=== PATIENT | female | born 1970 | race Caucasian/White ===

== ENCOUNTER 2024-03-05 13:17 | Emergency (ER) | payer MEDICAID ==
[~2024-03-05] VITALS: Ht 175.3 cm; Wt 101.0 kg
[2024-03-05 14:26] LABS: Basophils # (auto) 0.1 10 ^3/uL (0-0.2); Basophils % (auto) 0.8 % (0.0-2.0); Eosinophils # (auto) 0.2 10 ^3/uL (0-0.8); Eosinophils % (auto) 2.1 % (0.0-7.0); Hematocrit 41.8 % (36.0-46.0); Hemoglobin 14.2 g/dL (12.2-16.2); Lymphocytes # (auto) 2.8 10 ^3/uL (0.4-5.4); Mean Corpuscular Hemoglobin 31.6 pg (28.0-32.0); Mean Corpuscular Volume 92.8 fL (80.0-100.0); Monocytes # (auto) 0.5 10 ^3/uL (0-1.3); Monocytes % (auto) 5.9 % (0.0-12.0); Neutrophils # (auto) 5.5 10 ^3/uL (1.6-8.6); Neutrophils % (auto) 60.2 % (37.0-80.0); Platelet Count (auto) 316 10^3/uL (140-450); Red Cell Distribution Width 13.5 % (11.8-14.3); White Blood Cell 9.2 10^3/uL (4.4-10.8)
--- NOTE | 2024-03-05 14:34 | DVH ---
CT ABDOMEN AND PELVIS WITHOUT CONTRAST CLINICAL HISTORY: LEFT FLANK PAIN TECHNIQUE: Multiple contiguous axial images of the abdomen and pelvis without intravenous contrast. The images were reformatted degenerate coronal and sagittal reconstructions. All CT scans at this medical facility are performed using dose modulation techniques as appropriate t o a performed exam including the following:Automated exposure control was utilized; adjustment of the MA and/or KV according to patient size; and use of iterative reconstruction technique. Radiation Dose Information: CT Dose: CTDI volume is 19.95 mGy. Dose-length product is 1108.92 mGy*cm Comparison: None FINDINGS: Evaluation of the abdomen and pelvis is limited without intravenous contrast. There is no evidence of a radiopaque renal calculus. There is no hydronephrosis. There is no evidenc e of a ureteral calculus or hydroureter. Gallbladder appears contracted without evidence of gallstones. The liver, pancreas, adrenal gland s, and spleen appear within normal limits. There is no gross evidence of abdominal lymphadenopathy. There is no free fluid or free air. The stomach grossly appears unremarkable. The small and large bowel loops demonstrate normal caliber . The abdominal aorta and IVC appear within normal limits. The bladder appears unremarkable for the degree of distention. Pelvic organ appears within normal nicholas its. There is no gross evidence of a pelvic mass. There is no free fluid collection. Lung bases are clear. There is no acute osseous abnormality. IMPRESSION: 1. There is no acute process in the abdomen and pelvis. HS:Y
[2024-03-05 14:50] LABS: Alanine Aminotransferase 16 U/L (7-40); Albumin 4.4 g/dL (3.2-4.8); Alkaline Phosphatase 64 U/L (46-116); Anion Gap 7 (5-15); BUN/Creatinine Ratio 12.6 (10.0-20.0); Bilirubin, Total 0.3 mg/dL (0.2-1.0); Blood Urea Nitrogen 15 mg/dL (9-23); Calcium 9.9 mg/dL (8.7-10.4); Carbon Dioxide 27 mmol/L (20-31); Potassium 4.3 mmol/L (3.5-5.1); Sodium 143 mmol/L (136-145); Total Protein 6.8 g/dL (5.7-8.2)
[2024-03-05 14:54] LABS: Aspartate Aminotransferase < 8 U/L (13-40); Chloride 109 mmol/L (98-107); Glucose 110 mg/dL (74-106)
[2024-03-05] MEDS ORDERED: IBUP-1456 PO (15:32)
[2024-03-05] MEDS ORDERED: TOB03OS OP (15:32)
--- NOTE | 2024-03-05 15:33 | ED.PDOC ---
Back pain HPI HPI Comments A 53 YEAR OLD FEMALE PRESENTS TO THE ED WITH COMPLAINT OF LEFT MIDDLE BACK PAIN. PATIENT STATES SHE HAS BEEN EXPERIENCING LEFT-SIDED MIDDLE BACK PAIN FOR THE PAST 2 DAYS AFTER LIFTING HER GRANDSON AND NOTES SHE HAS A HISTORY OF DEGENERATIVE DISC DISEASE. PATIENT ALSO NOTES SHE HAD THORACIC EPIDURAL INJECTION DONE 3 DAYS AGO. PATIENT REPORTS SHE WAS ALSO BEEN EXPERIENCE BILATERAL EYE REDNESS FOR THE PAST 3 DAYS. PATIENT DENIES SADDLE ANESTHESIA, URINARY INCONTINENCE, BOWEL INCONTINENCE, FEVER, CHILLS, SHORTNESS OF BREATH, CHEST PAIN, ABDOMINAL PAIN, NAUSEA, VOMITING, HEADACHE, OR OTHER COMPLAINTS. NO OTHER SYMPTOMS OR MODIFYING FACTORS AT THIS TIME. PATIENT IS ALERT, ORIENTED X 4, AND HAS STEADY GAIT. Chief Complaint: Flank Pain Time Seen by MD: 13:51 Reviewed Notes: Nurses Notes, Medications, Allergies Allergies: Coded Allergies: [place] (Verified Allergy, Unknown, 03/05/24) Penicillins (Verified Allergy, Unknown, 03/05/24) Sulfa Antibiotics (Verified Allergy, Unknown, 03/05/24) Home Meds Active Scripts Tobramycin Sulfate (Tobrex) [address], 2 DROP OP QID, #5 ML Prov:MEDARDO VANCE 03/05/24 Ibuprofen (Ibuprofen) 800 Mg Tab, 1 TAB PO TID, #30 TAB Prov:MEDARDO VANCE 03/05/24 Information Source: Patient Mode of Arrival: Ambulatory Timing: Days Duration: Since onset, Days Location of Back pain: (B) Thoracic Severity: Moderate Prehospital treatment: None Quality: Aching, Cramping Onset: Spontaneous History of: Chronic Back Pain Modifying Factors: Movement Associated signs and symptoms: None Past Medical History Past Medical History (Other): DDD OF BACK Surgical History: Denies all surgeries CONTINUOUS PICKLING LINE PICKLER History: No Pertinent CONTINUOUS PICKLING LINE PICKLER History Family History Family History: Reviewed,noncontributory to illness Social History Smoker: Non-Smoker Alcohol: Denies ETOH Use Drugs: Denies Drug Use Lives In: Home Constitutional: denies: chills, diaphoresis, fatigue, fever, malaise, sweats, weakness, others EENTM: reports: eye redness; denies: blurred vision, double vision, ear bleeding, ear discharge, ear drainage, ear pain, ear ringing, eye pain, hearing loss, mouth pain, mouth swelling, nasal discharge, nose bleeding, nose congestion, nose pain, photophobia, tearing, throat pain, throat swelling, voice changes, others Respiratory: denies: cough, hemoptysis, orthopnea, SOB at rest, shortness of breath, SOB with excertion, stridor, wheezing, others Cardiovascular: denies: chest pain, dizzy spells, diaphoresis, Dyspnea on exertion, edema, irregular heart beat, left arm pain, lightheadedness, palpitations, PND, syncope, others Gastrointestinal: denies: abdomen distended, abdominal pain, blood streaked bowels, constipated, diarrhea, dysphagia, difficulty swallowing, hematemesis, melena, nausea, poor appetite, poor fluid intake, rectal bleeding, rectal pain, vomiting, others Genitourinary: denies: abnormal vagina bleeding, burning, dyspareunia, dysuria, flank pain, frequency, hematuria, incontinence, pain, , vagina discharge, urgency, others Neurological: denies: dizziness, fainting, headache, left sided numbness, left sided weakness, numbness, paresthesia, pre-existing deficit, right sided numbness, right sided weakness, seizure, speech problems, tingling, tremors, weakness, others Musculoskeletal: reports: back pain (LEFT MIDDLE BACK PAIN), muscle pain; denies: gout, joint pain, joint swelling, muscle stiffness, neck pain, others Integumetry: denies: bruises, change in color, change in hair/nails, dryness, laceration, lesions, lumps, rash, wounds, others Allergic/Immunocompromised: denies: Difficulty Healing, Frequent Infections, Hives, Itching, others Hematologic/Lymphatic: denies: anemia, blood clots, easy bleeding, easy bruising, swollen glands, others Endocrine: denies: excessive hunger, excessive sweating, excessive thirst, excessive urination, flushing, intolerance to cold, intolerance to heat, unexplained weight gain, unexplained weight loss, others Psychiatric: denies: anxiety, bipolar disorder, depression, hopeless, panic disorder, schizophrenia, sleepless, suicidal, others All Other Systems: Reviewed and Negative Physical Exam General Appearance: No Apparent Distress, Normal HEENT: Normal ENT Inspection, PERRL/EOMI, Pharynx Normal, TMs Normal, Other (BILATERAL SUBCONJUNCTIVA HEMORRHAGE WITH GREEN DISCHARGE. ) Neck: Full Range of Motion, Non-Tender, Normal, Normal Inspection Respiratory: Chest Non-Tender, Lungs Clear, No Accessory Muscle Use, No Respiratory Distress, Normal Breath Sounds Cardiovascular: No Edema, No JVD, No Murmur, No Gallop, Normal Peripheral Pulses, Regular Rate/Rhythm Breast Exam: Deferred Gastrointestinal: No Organomegaly, Non Tender, No Pulsatile Mass, Normal Bowel Sounds, Soft Genitalia: Deferred Pelvic: Deferred Rectal: Deferred Extremities: No calf tenderness, Normal capillary refill, Normal inspection, Normal range of motion, Non-tender, No pedal edema Musculoskeletal : Location: Bilateral Extremity Location: Back Apperance: Tenderness: Moderate (TENDERNESS AND MUSCLE SPASM ON LEFT MIDDLE BACK, NO BONY TENDERNESS AND SWELLING. ) Neurologic: Alert, supervisor fur dressing II-XII nml as Tested, No Motor Deficits, Normal Affect, Normal Mood, No Sensory Deficits Cerebellar Function: Normal Reflexes: Normal Skin: Dry, Normal Color, Warm Peripheral Pulses: 2+ carotid (R), 2+ carotid (L) Lymphatic: No Adenopathy Was a procedure done? Was a procedure done?: No Back Pain Differential Dx Differential Diagnosis: DJD, Musculoskeletal Pain, Strain Other Differential Diagnosis DDD X-Ray, Labs, Meds, VS Vital Signs Date Time Temp Pulse Resp B/P (MAP) Pulse Ox O2 Delivery O2 Flow Rate FiO2 03/05/24 15:36 98.0 74 18 119/71 (87) 96 98.0 03/05/24 15:36 74 18 96 Room Air 03/05/24 13:44 97.0 74 18 119/71 (87) 96 Lab Test 03/05/24 14:03 Range/Units White Blood Count 9.2 4.4-10.8 10^3/uL Red Blood Count 4.50 4.0-5.20 10^6/uL Hemoglobin 14.2 12.2-16.2 g/dL Hematocrit 41.8 36.0-46.0 % Mean Corpuscular Volume 92.8 80.0-100.0 fL Mean Corpuscular Hemoglobin 31.6 28.0-32.0 pg Mean Corpuscular Hemoglobin Concent 34.0 32.0-36.0 g/dL Red Cell Distribution Width 13.5 11.8-14.3 % Platelet Count 316 140-450 10^3/uL Mean Platelet Volume 8.2 6.9-10.8 fL Neutrophils (%) (Auto) 60.2 37.0-80.0 % Lymphocytes (%) (Auto) 31.0 10.0-50.0 % Monocytes (%) (Auto) 5.9 0.0-12.0 % Eosinophils (%) (Auto) 2.1 0.0-7.0 % Basophils (%) (Auto) 0.8 0.0-2.0 % Neutrophils # (Auto) 5.5 1.6-8.6 10 ^3/uL Lymphocytes # (Auto) 2.8 0.4-5.4 10 ^3/uL Monocytes # (Auto) 0.5 0-1.3 10 ^3/uL Eosinophils # (Auto) 0.2 0-0.8 10 ^3/uL Basophils # (Auto) 0.1 0-0.2 10 ^3/uL Nucleated Red Blood Cells 0.0 % Sodium Level 143 136-145 mmol/L Potassium Level 4.3 3.5-5.1 mmol/L Chloride Level 109 H 98-107 mmol/L Carbon Dioxide Level 27 20-31 mmol/L Anion Gap 7 5-15 Blood Urea Nitrogen 15 9-23 mg/dL Creatinine 1.19 H 0.550-1.02 mg/dL Glomerular Filtration Rate Calc 55 >90 mL/min BUN/Creatinine Ratio 12.6 10.0-20.0 Serum Glucose 110 H 74-106 mg/dL Calcium Level 9.9 8.7-10.4 mg/dL Total Bilirubin 0.3 0.2-1.0 mg/dL Aspartate Amino Transferase (AST) < 8 L 13-40 U/L Alanine Aminotransferase (ALT) 16 7-40 U/L Alkaline Phosphatase 64 46-116 U/L Total Protein 6.8 5.7-8.2 g/dL Albumin 4.4 3.2-4.8 g/dL Lipase Pending Current Medications Medications (Trade) Dose Ordered Sig/Dg Route Start Time Stop Time Status Last Admin Ketorolac Tromethamine (Toradol Injection) 60 mg ONCE ONCE IM 03/05/24 15:30 03/05/24 15:31 DC 03/05/24 15:34 CT ABDOMEN AND PELVIS WITHOUT CONTRAST CLINICAL HISTORY: LEFT FLANK PAIN TECHNIQUE: Multiple contiguous axial images of the abdomen and pelvis without i ntravenous contrast. The images were reformatted degenerate coronal and sagittal reconstructions. All CT scans at this medical facility are performed using dose modulation techniques as appropriate to a performed exam including the following:Automated exposure control was utilized; adjustment of the MA and/or KV according to patient size; and use of iterative reconstruction technique. Radiation Dose Information: CT Dose: CTDI volume is 19.95 mGy. Dose-length product is 1108.92 mGy*cm Comparison: None FINDINGS: Evaluation of the abdomen and pelvis is limited without intravenous contrast. There is no evidence of a radiopaque renal calculus. There is no hydronephrosis. There is no evidence of a ureteral calculus or hydroureter. Gallbladder appears contracted without evidence of gallstones. The liver, pancreas, adrenal glands, and spleen appear within normal limits. There is no gross evidence of abdominal lymphadenopathy. There is no free fluid or free air. The stomach grossly appears unremarkable. The small and large bowel loops demonstrate normal caliber. The abdominal aorta and IVC appear within normal limits. The bladder appears unremarkable for the degree of distention. Pelvic organ appears within normal limits. There is no gross evidence of a pelvic mass. There is no free fluid collection. Lung bases are clear. There is no acute osseous abnormality. IMPRESSION: 1. There is no acute process in the abdomen and pelvis. HS:Y ATED BY: PAVEL CAMPOS MD DICTATED DATE/TIME: 03/05/241432 SIGNED BY: PAVEL CAMPOS MD SIGNED DATE/TIME: 03/05/241432 CC: X-Ray, Labs, Meds, VS Comment EXTERNAL NOTES: NONE LABS ORDERED: CBC, BMP, LIPASE, UA REVIEWED AND INTERPRETED RESULTS: NORMAL IMAGING ORDERED: CT ABS/PEL INDEPENDENT HISTORIANS: NONE TREATMENTS ORDERED: TORADOL 60 MG IM PATIENT'S CASE AND RESULTS HAVE BEEN DISCUSSED WITH THE ED ATTENDING PHYSICIAN AND THEY AGREE WITH MY PLAN OF CARE. I HAVE DISCUSSED IMAGING AND LAB RESULTS WITH PATIENT AND HAVE INSTRUCTED THEM TO FOLLOW UP WITH THEIR PCP IN 1-2 DAYS. THE PATIENT FULLY UNDERSTANDS THEIR RESULTS AND ARE AWARE THEY NEED TO FOLLOW UP WITH THEIR PCP FOR FURTHER EVALUATION IF THEIR SYMPTOMS PERSIST. Images Reviewed?: Images reviewed and evaluated by me Time of 1ST Reevaluation: 15:41 Reevaluation 1ST: Improved Patient Education/Counseling: Diagnosis, Treatment, Need For Follow Up Family Education/Counseling: Diagnosis, Treatment, Need For Follow Up Medical Screening: No EMC Exist At This Time Departure 1 Departure Time of Disposition: 15:41 Impression: Primary Impression: Strain of mid-back Qualified Codes: S29.012A - Strain of muscle and tendon of back wall of thorax, initial encounter Additional Impression: Acute conjunctivitis of both eyes Qualified Codes: H10.33 - Unspecified acute conjunctivitis, bilateral Disposition: HOME / SELF CARE / HOMELESS Condition: Stable Additional Instructions: FOLLOW-UP WITH PCP IN 1 TO 2 DAYS. TAKE MEDICATIONS PRESCRIBED. RETURN TO ED FOR ANY NEW OR WORSENING SYMPTOMS. e-Prescriptions Tobramycin Sulfate (Tobrex) [address] 2 DROP OP QID, #5 ML Prov: MEDARDO VANCE 03/05/24 Ibuprofen (Ibuprofen) 800 Mg Tab 1 TAB PO TID, #30 TAB Prov: MEDARDO VANCE 03/05/24 Discharged With: Self Critical Care Note Critical Care Time?: No Stability Stability form required: No I personally scribed for MEDARDO VANCE ([email or web address]) on 03/05/24 at 15:33. Electronically submitted by Leonid Alarcon ([email or web address]). MEDARDO VANCE Mar 05, 2024 15:33
[2024-03-05] MEDS: KETOROLAC TROMETH 60MG/2ML VIAL IM ONE (15:34)
[2024-03-05 15:36] VITALS: BP 119/71; PULSE 74; RESP 18; TEMP 98; O2SAT 96
[2024-03-05 15:47] LABS: Lipase 60 U/L (12-53)
== END 2024-03-05 15:42 | disposition home or self-care (01) ==
LOC: ER 13:17
DX: S29.012A Strain of muscle and tendon of back wall of thorax, initial encounter (principal); H10.9 Unspecified conjunctivitis; Z88.0 Allergy status to penicillin; Z88.2 Allergy status to sulfonamides; Z88.8 Allergy status to other drugs, medicaments and biological substances; X50.0XXA Overexertion from strenuous movement or load, initial encounter; X50.9XXA Other and unspecified overexertion or strenuous movements or postures, initial encounter; Y93.89 Activity, other specified; Y99.8 Other external cause status
CPT/HCPCS: 36415; 74176; 80053; 83690; 85025; 96372; 99285; J1885

== ENCOUNTER 2024-12-01 06:22 | Emergency (ER) | payer MEDICAID ==
[~2024-12-01] VITALS: Ht 175.3 cm; Wt 108.2 kg
[~2024-12-01 06:22] MED LIST: IBUP-1456 PO; TOB03OS OP
[2024-12-01 06:24] VITALS: BP 150/76; PULSE 66; RESP 18; TEMP 98; O2SAT 96
[2024-12-01] MEDS ORDERED: HYDR50TA69 PO (07:00)
[2024-12-01] MEDS ORDERED: OLOP0.1S7 OP (07:00)
--- NOTE | 2024-12-01 07:09 | ED.PDOC ---
History of Present Illness HPI Comments A 54-YEAR-OLD FEMALE PRESENTS TO ER FOR BODY ITCHING AND EYES REDNESS. PT STATES SHE ATE SOME FOOD 3 DAYS AGO. AFTER THAT, SHE STARTED HAVING BODY ITCHING, EYES REDNESS AND MILD BODY SKIN RASH, POSSIBLE ALLERGIC REACTION. PT DENIES FEVER, SOB, CHEST PAIN, NAUSEA, VOMITING AND OTHER COMPLAINTS. NO OTHER SYMPTOMS REPORTED AT THIS TIME OF CARE. PT IS ALERT, ORIENTATION X4 WITH NORMAL GAIT. Chief Complaint: Rash Time Seen by MD: 06:32 Reviewed Notes: Nurses Notes, Medications, Allergies Allergies: Coded Allergies: Amitriptyline (Verified Allergy, Unknown, 12/01/24) [place] (Verified Allergy, Unknown, 03/05/24) Penicillins (Verified Allergy, Unknown, 03/05/24) Sulfa Antibiotics (Verified Allergy, Unknown, 03/05/24) Home Meds Active Scripts Prednisone (Prednisone) 20 Mg Tab, 60 MG PO DAILY, #18 TAB Prov:MEDARDO VANCE 12/01/24 Olopatadine HCl (Pataday) 0.1 % Ashley, 0.1 % OP BID, #5 ML Prov:MEDARDO VANCE 12/01/24 Hydroxyzine Hcl (Hydroxyzine Hcl) 50 Mg Tab, 1 TAB PO BID, #30 TAB Prov:MEDARDO VANCE 12/01/24 Tobramycin Sulfate (Tobrex) [address], 2 DROP OP QID, #5 ML Prov:MEDARDO VANCE 03/05/24 Ibuprofen (Ibuprofen) 800 Mg Tab, 1 TAB PO TID, #30 TAB Prov:MEDARDO VANCE 03/05/24 Information Source: Patient Mode of Arrival: Ambulatory Severity: Mild, Moderate Timing: Days Duration: Since onset, Days Prehospital treatment: None Medication Refill: For: Other (BODY ITCHING AND EYES REDNESS. ) Past Medical History PAST MEDICAL HISTORY: Anxiety, HTN Surgical History: Denies all surgeries INCINERATOR ATTENDANT History: No Pertinent INCINERATOR ATTENDANT History Family History Family History: Reviewed,noncontributory to illness Social History Smoker: Non-Smoker Alcohol: Denies ETOH Use Drugs: Denies Drug Use Lives In: Home Constitutional: denies: chills, diaphoresis, fatigue, fever, malaise, sweats, weakness, others EENTM: reports: eye redness, nose congestion; denies: blurred vision, double vision, ear bleeding, ear discharge, ear drainage, ear pain, ear ringing, eye pain, hearing loss, mouth pain, mouth swelling, nasal discharge, nose bleeding, nose pain, photophobia, tearing, throat pain, throat swelling, voice changes, others Respiratory: denies: cough, hemoptysis, orthopnea, SOB at rest, shortness of breath, SOB with excertion, stridor, wheezing, others Cardiovascular: denies: chest pain, dizzy spells, diaphoresis, Dyspnea on exertion, edema, irregular heart beat, left arm pain, lightheadedness, palpitations, PND, syncope, others Gastrointestinal: denies: abdomen distended, abdominal pain, blood streaked bowels, constipated, diarrhea, dysphagia, difficulty swallowing, hematemesis, melena, nausea, poor appetite, poor fluid intake, rectal bleeding, rectal pain, vomiting, others Genitourinary: denies: abnormal vagina bleeding, burning, dyspareunia, dysuria, flank pain, frequency, hematuria, incontinence, pain, , vagina discharge, urgency, others Neurological: denies: dizziness, fainting, headache, left sided numbness, left sided weakness, numbness, paresthesia, pre-existing deficit, right sided numbness, right sided weakness, seizure, speech problems, tingling, tremors, weakness, others Musculoskeletal: denies: back pain, gout, joint pain, joint swelling, muscle pain, muscle stiffness, neck pain, others Integumetry: denies: bruises, change in color, change in hair/nails, dryness, laceration, lesions, lumps, rash, wounds, others Allergic/Immunocompromised: denies: Difficulty Healing, Frequent Infections, Hives, Itching, others Hematologic/Lymphatic: denies: anemia, blood clots, easy bleeding, easy bruising, swollen glands, others Endocrine: denies: excessive hunger, excessive sweating, excessive thirst, excessive urination, flushing, intolerance to cold, intolerance to heat, unexplained weight gain, unexplained weight loss, others Psychiatric: reports: anxiety; denies: bipolar disorder, depression, hopeless, panic disorder, schizophrenia, sleepless, suicidal, others All Other Systems: Reviewed and Negative Physical Exam General Appearance: No Apparent Distress, Obese HEENT: Normal ENT Inspection, PERRL/EOMI, Pharynx Normal, TMs Normal, Other (MILD BILATERAL SUBCONJUNCTIVA HEMORRHAGE WITH WATERY DISCHARGE. ) Neck: Full Range of Motion, Non-Tender, Normal, Normal Inspection Respiratory: Chest Non-Tender, Lungs Clear, No Accessory Muscle Use, No Respiratory Distress, Normal Breath Sounds Cardiovascular: No Edema, No JVD, No Murmur, No Gallop, Normal Peripheral Pulses, Regular Rate/Rhythm Breast Exam: Deferred Gastrointestinal: No Organomegaly, Non Tender, No Pulsatile Mass, Normal Bowel Sounds, Soft Genitalia: Deferred Pelvic: Deferred Rectal: Deferred Extremities: No calf tenderness, Normal capillary refill, Normal inspection, Normal range of motion, Non-tender, No pedal edema Musculoskeletal : Apperance: Normal Neurologic: Alert, loss prevention manager II-XII nml as Tested, No Motor Deficits, Normal Affect, Normal Mood, No Sensory Deficits Cerebellar Function: Normal Reflexes: Normal Skin: Dry, Normal Color, Rash (MILD BODY SKIN RASH WITH ITCHING, NO TENDERNESS AND SWELLING, NO OPEN WOUND SEEN. ), Warm Peripheral Pulses: 2+ carotid (R), 2+ carotid (L) Lymphatic: No Adenopathy Was a procedure done? Was a procedure done?: No Differential Dx Considerations may include: ALLERGIC CONJUNCTIVITIS OF EYES, ALLERGIC REACTION. X-Ray, Labs, Meds, VS Vital Signs Date Time Temp Pulse Resp B/P (MAP) Pulse Ox O2 Delivery O2 Flow Rate FiO2 12/01/24 06:24 98.0 66 18 150/76 96 98.0 X-Ray, Labs, Meds, VS Comment EXTERNAL MEDICAL RECORDS REVIEWED: [NONE] INDEPENDENT HISTORIANS: [NONE] SOCIAL DETERMINANTS OF HEALTH: [NONE] LABS ORDERED: ACCUCHECK REVIEWED AND INTERPRETED RESULTS: NONE IMAGING ORDERED: NONE TREATMENTS ORDERED: NONE PROCEDURES PERFORMED: NONE CRITICAL CARE TIME: NONE I HAVE DISCUSSED THE PATIENT WITH THE ATTENDING PHYSICIAN, DR. KEYS, AND HE AGREES WITH THE PATIENT'S PLAN OF CARE AND DISPOSITION. BASED ON HISTORY OF PRESENT ILLNESS, AND PHYSICAL EXAM, PATIENT WILL BE DISCHARGED HOME. DISCUSSED PLAN FOR DISCHARGE HOME WITH RX HYDROXYZINE HCL 50MG, OLOPATADINE HCL 0.1%, AND PREDNISONE 15MG . MEDICATION WARNINGS GIVEN. SHARED DECISION MAKING: DISCUSSED WITH PATIENT THAT THEIR WORKUP WAS NORMAL. PATIENT INSTRUCTED TO FOLLOW UP WITH PRIMARY CARE PROVIDER IN 1-2 DAYS FOR RE- EVALUATION OF SYMPTOMS. PATIENT VERBALIZES UNDERSTANDING TO RETURN TO ED FOR NEW OR WORSENING SYMPTOMS OR IF FOLLOW UP WITH PCP CANNOT BE OBTAINED. PATIENT FEELS COMFORTABLE GOING HOME AT THIS TIME. ALL QUESTIONS ADDRESSED AT TIME OF DISCHARGE. Time of 1ST Reevaluation: 07:13 Reevaluation 1ST: Improved Patient Education/Counseling: Diagnosis, Treatment, Need For Follow Up Family Education/Counseling: Diagnosis, Treatment, No Family Present Medical Screening: No EMC Exist At This Time SEPSIS Sepsis Screen Date sepsis recognized/suspect: Dec 01, 2024 Time Sepsis recognized/suspect: 623 Recent Procedure: No On Antibiotic Therapy: No Respiratory Rate >20: No Heart Rate >90: No Temp<36 C (96.8 F) or >38.3 C: No SBP <90 or MAP <65 mmHG: No New Acute Mental Status Change: No Is the patient on CPAP, BIPAP,: No Physician Orders Accucheck (12/01/24 06:52) Vital Signs Date Time Temp Pulse Resp B/P (MAP) Pulse Ox O2 Delivery O2 Flow Rate FiO2 12/01/24 06:24 98.0 66 18 150/76 96 98.0 Departure 1 Departure Time of Disposition: 07:14 Impression: Primary Impression: Allergic conjunctivitis, bilateral Additional Impression: Allergic reaction Qualified Codes: T78.40XA - Allergy, unspecified, initial encounter Disposition: HOME / SELF CARE / HOMELESS Condition: Stable Additional Instructions: F/U PCP IN 2 DAYS RECHECK. IF CONDITION BECOME WORSE, RETURN TO [facility]. e-Prescriptions Prednisone (Prednisone) 20 Mg Tab 60 MG PO DAILY, #18 TAB Prov: MEDARDO VANCE 12/01/24 Olopatadine HCl (Pataday) 0.1 % Ashley 0.1 % OP BID, #5 ML Prov: MEDARDO VANCE 12/01/24 Hydroxyzine Hcl (Hydroxyzine Hcl) 50 Mg Tab 1 TAB PO BID, #30 TAB Prov: MEDARDO VANCE 12/01/24 Discharged With: Self Critical Care Note Critical Care Time?: No Stability Stability form required: No Heart Score Heart Score: Heart Score Response (Comments) Value History N/A 0 EKG N/A 0 Age N/A 0 Risk Factors N/A 0 Troponin N/A 0 Total 0 I personally scribed for MEDARDO VANCE ([email or web address]) on 12/01/24 at 07:12. Electronically submitted by Frieda Parker ([email or web address]). I personally scribed for MEDARDO VANCE ([email or web address]) on 12/01/24 at 07:12. Electronically submitted by Frieda Parker ([email or web address]). MEDARDO VANCE Dec 01, 2024 07:09
[2024-12-01] MEDS ORDERED: PRED20TA2 PO (07:13)
== END 2024-12-01 07:09 | disposition home or self-care (01) ==
LOC: ER 06:22
DX: H10.13 Acute atopic conjunctivitis, bilateral (principal); L29.9 Pruritus, unspecified; T78.40XA Allergy, unspecified, initial encounter; Z88.0 Allergy status to penicillin; Z88.2 Allergy status to sulfonamides; X58.XXXA Exposure to other specified factors, initial encounter

== ENCOUNTER 2024-12-05 05:11 | Emergency (ER) | payer MEDICAID ==
[~2024-12-05] VITALS: Ht 175.3 cm; Wt 107.4 kg
[~2024-12-05 05:11] MED LIST changes: +HYDR50TA69 PO; +OLOP0.1S7 OP; +PRED20TA2 PO
[2024-12-05 05:12] VITALS: TEMP 98.1
--- NOTE | 2024-12-05 06:20 | ED.PDOC ---
History of Present Illness HPI Comments 54-year-old female presents to the ER prior medical history of anxiety, hypertension in the chief complaint of rash. Patient reports on having generalized itching due from drinking moldy water. Patient states she was here Friday and was prescribed medications for which are not working. Due from a visual exam the patient does not have any rash or hives present at the moment. Denies chills, fever, N/V/D, SOB, CP. No other associated symptoms, modifiers, recent injuries or sick contacts present at this time. Chief Complaint: Rash Time Seen by MD: 06:15 Reviewed Notes: Nurses Notes, Medications, Allergies Allergies: Coded Allergies: Amitriptyline (Verified Allergy, Unknown, 12/01/24) [place] (Verified Allergy, Unknown, 03/05/24) Penicillins (Verified Allergy, Unknown, 03/05/24) Sulfa Antibiotics (Verified Allergy, Unknown, 03/05/24) Home Meds Active Scripts Prednisone (Prednisone) 20 Mg Tab, 60 MG PO DAILY, #18 TAB Prov:MEDARDO VANCE 12/01/24 Olopatadine HCl (Pataday) 0.1 % Ashley, 0.1 % OP BID, #5 ML Prov:MEDARDO VANCE 12/01/24 Hydroxyzine Hcl (Hydroxyzine Hcl) 50 Mg Tab, 1 TAB PO BID, #30 TAB Prov:MEDARDO VANCE 12/01/24 Tobramycin Sulfate (Tobrex) [address], 2 DROP OP QID, #5 ML Prov:MEDARDO VANCE 03/05/24 Ibuprofen (Ibuprofen) 800 Mg Tab, 1 TAB PO TID, #30 TAB Prov:MEDARDO VANCE 03/05/24 Information Source: Patient Mode of Arrival: Ambulatory Severity: Moderate Timing: Days Duration: Since onset, Days Prehospital treatment: None Past Medical History PAST MEDICAL HISTORY: Anxiety, HTN Surgical History: Denies all surgeries PHYSICIAN RELATIONS SPECIALIST History: No Pertinent PHYSICIAN RELATIONS SPECIALIST History Family History Family History: Reviewed,noncontributory to illness, Unknown Social History Smoker: Non-Smoker Alcohol: Denies ETOH Use Drugs: Denies Drug Use Lives In: Home Constitutional: reports: others (Generalized itchiness); denies: chills, diaphoresis, fatigue, fever, malaise, sweats, weakness EENTM: denies: blurred vision, double vision, ear bleeding, ear discharge, ear drainage, ear pain, ear ringing, eye pain, eye redness, hearing loss, mouth pain, mouth swelling, nasal discharge, nose bleeding, nose congestion, nose pain, photophobia, tearing, throat pain, throat swelling, voice changes, others Respiratory: denies: cough, hemoptysis, orthopnea, SOB at rest, shortness of breath, SOB with excertion, stridor, wheezing, others Cardiovascular: denies: chest pain, dizzy spells, diaphoresis, Dyspnea on exertion, edema, irregular heart beat, left arm pain, lightheadedness, palpitations, PND, syncope, others Gastrointestinal: denies: abdomen distended, abdominal pain, blood streaked bowels, constipated, diarrhea, dysphagia, difficulty swallowing, hematemesis, melena, nausea, poor appetite, poor fluid intake, rectal bleeding, rectal pain, vomiting, others Genitourinary: denies: abnormal vagina bleeding, burning, dyspareunia, dysuria, flank pain, frequency, hematuria, incontinence, pain, , vagina discharge, urgency, others Neurological: denies: dizziness, fainting, headache, left sided numbness, left sided weakness, numbness, paresthesia, pre-existing deficit, right sided numbness, right sided weakness, seizure, speech problems, tingling, tremors, weakness, others Musculoskeletal: denies: back pain, gout, joint pain, joint swelling, muscle pain, muscle stiffness, neck pain, others Integumetry: denies: bruises, change in color, change in hair/nails, dryness, laceration, lesions, lumps, rash, wounds, others Allergic/Immunocompromised: denies: Difficulty Healing, Frequent Infections, Hives, Itching, others Hematologic/Lymphatic: denies: anemia, blood clots, easy bleeding, easy bruising, swollen glands, others Endocrine: denies: excessive hunger, excessive sweating, excessive thirst, excessive urination, flushing, intolerance to cold, intolerance to heat, unexplained weight gain, unexplained weight loss, others Psychiatric: denies: anxiety, bipolar disorder, depression, hopeless, panic disorder, schizophrenia, sleepless, suicidal, others All Other Systems: Reviewed and Negative Physical Exam General Appearance: Moderate Distress, Normal HEENT: Normal ENT Inspection, Pharynx Normal, TMs Normal Neck: Full Range of Motion, Non-Tender, Normal, Normal Inspection Respiratory: Chest Non-Tender, Lungs Clear, No Accessory Muscle Use, No Respiratory Distress, Normal Breath Sounds Cardiovascular: No Edema, No JVD, No Murmur, No Gallop, Normal Peripheral Pulses, Regular Rate/Rhythm Breast Exam: Deferred Gastrointestinal: No Organomegaly, Non Tender, No Pulsatile Mass, Normal Bowel Sounds, Soft Genitalia: Deferred Pelvic: Deferred Rectal: Deferred Extremities: No calf tenderness, Normal capillary refill, Normal inspection, Normal range of motion, Non-tender, No pedal edema Musculoskeletal : Apperance: Normal Neurologic: Alert, histology aide II-XII nml as Tested, No Motor Deficits, Normal Affect, Normal Mood, No Sensory Deficits Cerebellar Function: Normal Reflexes: Normal Skin: Dry, Normal Color, Warm Peripheral Pulses: 3+ Radial (R), 3+ Radial (L) Lymphatic: No Adenopathy Was a procedure done? Was a procedure done?: No Differential Dx Considerations may include: [place] Contact dermatitis X-Ray, Labs, Meds, VS Vital Signs Date Time Temp Pulse Resp B/P (MAP) Pulse Ox O2 Delivery O2 Flow Rate FiO2 12/05/24 05:12 98.1 66 16 163/85 100 98.1 Patient alert. Came in for rash. No rash appreciated. Vitals stable. Ambulating. No sign of any distress. No acute process. Abdomen is soft nontender. She is currently on prednisone. Chest x-ray reviewed does not show any acute process. Saturation pristine on room air. No leg swelling. No chest pain. Reviewed her previous visit. Explained to the patient. Was told to follow up with her primary care physician. Was told to come back if there is any problem. Time of 1ST Reevaluation: 06:45 Reevaluation 1ST: Improved Patient Education/Counseling: Diagnosis, Treatment, Prognosis Family Education/Counseling: No Family Present SEPSIS Sepsis Screen Date sepsis recognized/suspect: Dec 05, 2024 Time Sepsis recognized/suspect: 511 Recent Procedure: No On Antibiotic Therapy: No Respiratory Rate >20: No Heart Rate >90: No Temp<36 C (96.8 F) or >38.3 C: No SBP <90 or MAP <65 mmHG: No New Acute Mental Status Change: No Is the patient on CPAP, BIPAP,: No Physician Orders Chest Portable (12/05/24 07:01) Urinalysis (12/05/24 07:01) Vital Signs Date Time Temp Pulse Resp B/P (MAP) Pulse Ox O2 Delivery O2 Flow Rate FiO2 12/05/24 05:12 98.1 66 16 163/85 100 98.1 Departure 1 Departure Time of Disposition: 07:31 Impression: Primary Impression: Allergic reaction Qualified Codes: T78.40XS - Allergy, unspecified, sequela Disposition: HOME / SELF CARE / HOMELESS Condition: Good Discharged With: Self Critical Care Note Critical Care Time?: No Stability Stability form required: No Heart Score Heart Score: Heart Score Response (Comments) Value History N/A 0 EKG N/A 0 Age N/A 0 Risk Factors N/A 0 Troponin N/A 0 Total 0 I personally scribed for PEÑA CHAUDHRY MD ([email or web address]) on 12/05/24 at 06:20. Electronically submitted by Momo Santacruz ([email or web address]). PEÑA CHAUDHRY MD Dec 05, 2024 06:20
[2024-12-05 07:19] VITALS: BP 136/86; PULSE 63; RESP 18; O2SAT 98
[2024-12-05 08:08] LABS: Urine Protein, UAD Negative (Negative)
--- NOTE | 2024-12-05 08:09 | DVH ---
XY CHEST PORTABLE, HISTORY: sob COMPARISON: None None TECHNICAL DATA: 1 view of the chest was obtained. FINDINGS: Lines and tubes: None Cardiomediastinal silhouette: normal Pulmonary vasculature: normal Lung expansion: normal Lung airspace: normal Lung interstitium: normal Pleura: normal Pneumothorax: no Bones: Unremarkable Other: no IMPRESSION: No acute intrathoracic abnormality.
== END 2024-12-05 09:02 | disposition home or self-care (01) ==
LOC: ER 05:11
DX: L29.9 Pruritus, unspecified (principal); T78.40XA Allergy, unspecified, initial encounter; F41.9 Anxiety disorder, unspecified; I10 Essential (primary) hypertension; Z79.899 Other long term (current) drug therapy; Z88.2 Allergy status to sulfonamides; Z88.0 Allergy status to penicillin; X58.XXXA Exposure to other specified factors, initial encounter
CPT/HCPCS: 71045; 81001

== ENCOUNTER 2025-02-10 12:31 | Emergency (ER) | payer MEDICAID ==
[~2025-02-10] VITALS: Ht 175.3 cm; Wt 108.1 kg
[2025-02-10 12:37] VITALS: BP 137/89; PULSE 72; RESP 18; TEMP 98.4; O2SAT 97
== END 2025-02-10 13:10 | disposition left against medical advice (07) ==
LOC: ER 12:31
DX: H57.11 Ocular pain, right eye (principal); Z53.21 Procedure and treatment not carried out due to patient leaving prior to being seen by health care provider